=== PATIENT | male | born 2000 | race Caucasian/White ===

== ENCOUNTER 2024-10-21 21:12 | Emergency (ER) | payer BC, SELFPAY ==
[2024-10-21 21:20] VITALS: BP 121/85; PULSE 78; RESP 18; TEMP 37.2; O2SAT 96; BMI 3319.7
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
[2024-10-21] MEDS: tetanus-dipt-pertussis 0.5 mL SDV IM (22:15)
[2024-10-21] MEDS: HYDROcodone-acetaminophen 10-325 mg Tablet 1 TAB PO (22:37)
[2024-10-21] MEDS: HYDROcodone-acetaminophen 5-325 mg Tablet 3 TAB PO (23:35)
== END 2024-10-21 23:41 | disposition home or self-care (01) ==
PROVIDERS: Emergency Provider Emergency Medicine; PCP Nurse Practitioner Family
DX: S62.394A Other fracture of fourth metacarpal bone, right hand, initial encounter for closed fracture (principal); S62.396A Other fracture of fifth metacarpal bone, right hand, initial encounter for closed fracture; V86.99XA Unspecified occupant of other special all-terrain or other off-road motor vehicle injured in nontraffic accident, initial encounter
CPT/HCPCS: 29125; 73080; 73110; 73130; 90471; 90715; 99284; 99291; J9999

== ENCOUNTER 2024-10-23 12:41 | Day surgery (SDC) | payer BC, SELFPAY ==
[2024-10-23] VITALS (9 sets, daily range): BP systolic 82–148; BP diastolic 47–85; PULSE 76–101; RESP 17–18; TEMP 36.7–36.9; O2SAT 95–98; BMI 23.0
--- NOTE | 2024-10-23 | XR_ITS ---
WS: [id number] XR hand RT min 3V* [id number] REASON FOR EXAM: Open reduction with internal fixation of 4th and 5th metacar FINDINGS: Plate and screw fixations of comminuted fractures of the fourth and fifth metacarpals. Surgical appliances are intact and in proper position and alignment. Fracture fragments are in good apposition and alignment. XR/XR hand RT min 3V* [id number] IMPRESSION: Fourth and fifth metacarpal fractures with internal fixation.
--- NOTE | 2024-10-23 13:42 | SUR.PREOP ---
1325-Auxiliary nerve block completed in OPS using 30ml 0.5% ropivicaine. Patient tolerated well.
--- NOTE | 2024-10-23 13:46 | P.ANESASSM_ITS ---
Pre-Anesthetic Assessment Height/Weight: Height 1.83 m Weight 77.111 kg Temp Pulse Resp BP Pulse Ox O2 Del Method 98.1 F 89 17 148/85 98 Room Air 10/23/24 12:56 10/23/24 12:56 10/23/24 12:56 10/23/24 12:56 10/23/24 12:56 10/23/24 12:58 Operation Date: 10/23/24 14:25 Proposed Procedures p Open Reduction Internal Fixation RIGHT Fourth and Fifth Metacarpal Fractures(Right) - Benjie Mitchell MD Familial anesthetic complications: None Was Beta Yesi taken within 24 hours: N/A Was Clonidine taken within 24 hours: N/A Last intake: Intake Last Liquid Date 10/23/24 Last Liquid Time 07:00 Last Solid Date 10/22/24 Last Solid Time 18:30 Social No alcohol and No tobacco Exam alert, oriented x 3, clear to auscultation bilaterally and regular rate & rhythm Airway Mallampati: Class II Dentition: full Anesthetic Plan ASA status: 2 Anesthesia: General and Regional (specify below) Risk of > 500 ml blood loss (7ml/kg in children): No Medications/Allergies Home Medications ?Medication ?Instructions ?Recorded ?Confirmed ?Last Taken ?Type hydrocodone 5 mg-acetaminophen 325 1 tab PO Q6H PRN pa in #20 tabs 10/21/24 10/22/24 10/22/24 Rx mg tablet ondansetron 4 mg disintegrating 4 mg PO Q8H PRN nausea and 10/21/24 10/22/24 Unknown Rx tablet vomiting #10 tabs polyethylene glycol 3350 17 17 g PO DAILY #510 grams 0 10/21/24 10/22/24 Unknown R x gram/dose oral powder (Miralax) Allergies Allergy/AdvReac Type Severity Reaction Status Date / Time No Known Allergies Allergy Verified 10/22/24 11:18 Current Medications Generic Name Dose Route Start Last Admin Trade Name Freq PRN Reason Stop Dose Admin Sodium Chloride 1,000 mls @ 30 mls/hr 10/23/24 13:00 10/23/24 13:07 Sodium Chloride 0.9% IV 10/24/24 12:59 30 mls/hr .Q24H GAEL Administration PFSH Anesthesia Family History (Updated 10/22/24 @ 11:25 by Bhumi Eagle MA) Father Hypertension Grandmother Diabetes Social History Smoking and tobacco/nicotine status: never used tobacco/nicotine Anesthesia Procedures Nerve Block Nerve Block 1: Main Anesthesia: general anesthesia Time Out Performed: Yes Consent: requested by attending/covering physician, from patient, from other, risks and benefits reviewed and patient agrees to proceed Nerve block location: axillary (R) Anesthesia monitors applied: pulse oximetry, EKG, BP cuff and oxygen Nerve block position: supine Anesthetic Used: ropivicaine 0.5% (30 ml) and with decadron (4 mg) Ultrasound used to: recognize landmarks, visualize and ID brachial plexus, in supraclavicular region and visualize and ID interscalene groove Interscalene/Femoral BLK: 2 stimuplex 22 g needle used for position and inplane approach, visualize local anesthetic spread and no vascular puncture identified Injection: neg aspiration of heme Patient Tolerated Procedure: well Complications: none
[2024-10-23] MEDS: ceFAZolin 2,000 mg SDV 2000 MG IVP (14:02)
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
--- NOTE | 2024-10-23 16:28 | W.PM.OPSUD ---
Surgery/Procedure H&P Update DATE OF PROCEDURE: October 23, 2024 DATE H&P PERFORMED: 10/22/24 H&P UPDATE INFORMATION: I have reviewed H&P completed within last 30 days, I have examined patient prior to procedure and No changes to prior documentation PREOP DIAGNOSIS: Metacarpal fractures of the right hand, third, fourth, fifth PLANNED PROCEDURE: Operation Date: 10/23/24 14:25 Proposed Procedures p Open Reduction Internal Fixation RIGHT Fourth and Fifth Metacarpal Fractures(Right) - Benjie Mitchell MD
== END 2024-10-23 17:30 | disposition home or self-care (01) ==
PROVIDERS: PCP Nurse Practitioner Family; Visit Provider Orthopaedic Surgery
PROC: (CPT 26615; principal; 2024-10-23 14:15)
DX: S62.302A Unspecified fracture of third metacarpal bone, right hand, initial encounter for closed fracture (principal); S62.304A Unspecified fracture of fourth metacarpal bone, right hand, initial encounter for closed fracture; S62.306A Unspecified fracture of fifth metacarpal bone, right hand, initial encounter for closed fracture; V86.95XA Unspecified occupant of 3- or 4- wheeled all-terrain vehicle (ATV) injured in nontraffic accident, initial encounter
CPT/HCPCS: 26615 ×2; 26605; 73130; 76000; C1713; J0690; J1100; J2250; J2405; J2704; J2795; J3010; J7030

== ENCOUNTER → 2024-11-05 13:15 | Outpatient (BNVA) | payer BC, SELFPAY | PROVIDERS: PCP Nurse Practitioner Family; Visit Provider Orthopaedic Surgery | DX: S62.328D Displaced fracture of shaft of other metacarpal bone, subsequent encounter for fracture with routine healing (principal); X58.XXXD Exposure to other specified factors, subsequent encounter | CPT/HCPCS: 73130 ==

== ENCOUNTER → 2024-11-22 10:39 | Outpatient (BNVA) | payer BC, SELFPAY | PROVIDERS: PCP Nurse Practitioner Family; Visit Provider Orthopaedic Surgery | DX: Z98.890 Other specified postprocedural states (principal) | CPT/HCPCS: 73130 ==

== ENCOUNTER 2024-11-22 11:38 | Outpatient (CLI) | payer BC, SELFPAY | END 2024-11-22 11:39 | disposition home or self-care (01) | LOC: SPT 11:39 | PROVIDERS: PCP Nurse Practitioner Family; Visit Provider Orthopaedic Surgery | DX: Z46.89 Encounter for fitting and adjustment of other specified devices (principal); S62.91XD Unspecified fracture of right hand, subsequent encounter for fracture with routine healing; X58.XXXD Exposure to other specified factors, subsequent encounter | CPT/HCPCS: L3984 ==

== ENCOUNTER → 2024-12-06 10:41 | Outpatient (BNVA) | payer BC, SELFPAY | PROVIDERS: PCP Nurse Practitioner Family; Visit Provider Orthopaedic Surgery | DX: Z98.890 Other specified postprocedural states (principal) | CPT/HCPCS: 73130 ==